=== PATIENT | female | born 2000 | race Caucasian/White ===

== ENCOUNTER 2018-06-23 17:11 | Inpatient (IN) ==
[2018-06-23] MEDS ORDERED: Morphine Inj 4 MG/ML Vial IV.PUSH ONE (17:59)
[2018-06-23] MEDS ORDERED: Sod Chloride 0.9% Inj 1,000 ML IV.SIG ONE (17:59)
--- NOTE | 2018-06-23 18:14 | ED ---
HPI General Chief Complaint: Abdominal Pain Stated Complaint: headache Time Seen by Provider: 06/23/18 17:43 Source: patient Mode of arrival: ambulatory Limitations: no limitations History of Present Illness HPI narrative: Patient is a previously healthy 17-year-old female who presents with complaint of abdominal pain that started last night and is associated with nausea but no vomiting. It is in the periumbilical/suprapubic/right lower quadrant region. She is never had this pain before. She did take aspirin this morning which did not relieve her symptoms. No diarrhea nor constipation. No fever nor chills that she is aware of. No cough, congestion, headache. MD complaint: Reports abdominal pain Onset (ago): hour(s) Pain Consistency: constant Location: Reports periumbilical, RLQ and suprapubic Severity: mild Quality: Reports stabbing Relieving factors: nothing Exacerbating factors: movement Associated symptoms: Reports nausea Treatments prior to arrival: Reports NSAIDs Related Data Home Medications Medication Instructions Recorded Confirmed albuterol sulfate [ProAir HFA] 1 puff INHALATION Q6H PRN 06/23/18 06/23/18 Previous Rx's Medication Instructions Recorded ciprofloxacin HCl [Cipro] 500 mg PO BID 10 Days #20 tab 06/23/18 metronidazole [Flagyl] 500 mg PO Q8H 10 Days #30 tab 06/23/18 Allergies Allergy/AdvReac Type Severity Reaction Status Date / Time No Known Allergies Allergy Verified 06/23/18 17:34 Review of Systems ROS: all other systems reviewed are negative [facility] Medical History Medical History Asthma (Acute) Surgical History Surgical History No history of previous surgery (Acute) Social History Social History Substance History: Active Abuse Smoking Status: Never smoker How Often Do You Have a Drink Containing Alcohol: 2 to 4 times a month Recent Travel in [facility] within the Last 8 Weeks: No Recent Out of Country Travel within the Last 8 Weeks: No Substance Abuse Detail Marijuana: Substance Use Status: Active Route Used Substance Abuse: Inhalation Immunization History Tetanus Immunization: Unsure Exam Narrative Exam Narrative: GENERAL: Well-appearing young female in no acute distress SKIN: Focused skin assessment warm/dry. No rashes. HEAD: Atraumatic. Normocephalic. EYES: Pupils equal and round. No scleral icterus. No injection or drainage. ENT: No nasal bleeding or discharge. Mucous membranes pink and moist. NECK: Trachea midline. No JVD. CARDIOVASCULAR: Regular rate and rhythm. No murmur appreciated. Intact and equal peripheral pulses. RESPIRATORY: No accessory muscle use. Clear to auscultation. Breath sounds equal bilaterally. GASTROINTESTINAL: Abdomen soft, nondistended. Tenderness present in the epigastric/periumbilical/suprapubic/right lower quadrant regions. Hepatic and splenic margins not palpable. No CVA tenderness. Negative Bradshaw sign. MUSCULOSKELETAL: No obvious deformities. No clubbing. No cyanosis. No edema. NEUROLOGICAL: Awake and alert. No obvious cranial nerve deficits. Motor grossly within normal limits. Normal speech. PSYCHIATRIC: Appropriate mood and affect; insight and judgment normal. Course Hospital Course: 2100: Patient adamantly wants to go home. Her HR is still in the 120s. She agreed to stay at least until the fluids were completed. Initial Documented Vital Signs Temperature 100.3 F H 06/23/18 17:21 Pulse Rate 115 H 06/23/18 17:21 Respiratory Rate 18 06/23/18 17:21 Blood Pressure 140/69 06/23/18 17:21 Pulse Oximetry 100 06/23/18 17:21 Last Documented Vital Signs Temperature 100.3 F H 06/23/18 17:21 Pulse Rate 122 H 06/23/18 20:57 Respiratory Rate 18 06/23/18 20:57 Blood Pressure 125/60 06/23/18 20:57 Pulse Oximetry 100 06/23/18 20:57 Medical Decision Making [facility] Narrative Medical decision making narrative: Patient is a 17-year-old female who presents with complaint of abdominal pain and general ill feeling. She appears well in general but is tachycardic with a heart rate of 115 on arrival and temperature of 100.3. Labs reveal a leukocytosis but are otherwise unremarkable. UA is concerning for infection. CT is concerning for mild colitis. She was given 2500 cc of fluid in addition to analgesics after which her heart rate remained elevated in the 120s with a stable blood pressure. Given the leukocytosis with persistent tachycardia this is concerning for sepsis. She has been given Cipro and Flagyl to cover both for the UTI and colitis. Dr. Thomas, hospitalist on- call, has accepted admission. Shortly after admission the patient did begin to have some vomiting and was given Zofran. Medical Screen Exam Complete: Yes Emergency Medical Condition: Yes Differential Diagnosis Differential Diagnosis: Differential diagnosis includes but is not limited to gastroenteritis, viral illness, dehydration, appendicitis. Medical Records Medical records reviewed: Yes I reviewed the patient's medical records. Lab Data Lab results reviewed: Yes I reviewed the patient's lab results. Result diagrams: 06/23/18 18:05 06/23/18 18:05 POC Results POC Urine Results Negative Lab Results 06/23/18 06/23/18 06/23/18 Range/Units 18:05 18:05 18:15 WBC 20.2 H (4.0-11.0) th/mm3 RBC 4.05 (4.00-5.30) mil/mm3 Hgb 12.8 (11.6-15.3) gm/dL Hct 37.1 (35.0-46.0) % MCV 91.5 (80.0-100.0) fL MCH 31.6 (27.0-34.0) pg MCHC 34.5 (32.0-36.0) % RDW 14.0 (11.6-17.2) % Plt Count 365 (150-450) th/mm3 MPV 9.0 (7.0-11.0) fL Prelim Diff (Auto) Slide review pending Neut % (Auto) 90.9 H (16.0-70.0) % Lymph % (Auto) 4.0 L (9.0-44.0) % [place] % (Auto) 4.6 (0.0-8.0) % Eos % (Auto) 0.2 (0.0-4.0) % Baso % (Auto) 0.3 (0.0-2.0) % Neut # (Auto) 18.4 H (1.8-7.7) th/mm3 Lymph # (Auto) 0.8 L (1.0-4.8) th/mm3 [place] # (Auto) 0.9 (0.0-0.9) th/mm3 Eos # (Auto) 0.0 (0.0-0.4) th/mm3 Baso # (Auto) 0.1 (0.0-0.2) th/mm3 WBC Differential . Diff Scan Auto diff confirmed Differential Comment . Platelet Estimate Normal (Normal) Platelet Morphology Normal (Normal) Sodium 137 (136-145) meq/L Potassium 4.6 (3.5-5.1) meq/L Chloride 106 (98-107) meq/L Carbon Dioxide 22.3 (21.0-32.0) meq/L Anion Gap 9 (5-15) meq/L BUN 12 (7-18) mg/dL Creatinine 0.84 (0.50-1.00) mg/dL Estimated GFR 87 L (>89) mL/min Random Glucose 95 (74-106) mg/dL Lactic Acid (0.4-2.0) mmol/L Calcium 9.0 (8.5-10.1) mg/dL Magnesium 1.9 (1.5-2.5) mg/dL Total Bilirubin 0.8 (0.2-1.0) mg/dL AST 39 H (16-38) U/L ALT 17 (9-42) U/L Alkaline Phosphatase 73 (45-117) U/L Total Protein 8.8 H (6.4-8.2) g/dL Albumin 4.3 (3.4-5.0) g/dL Lipase 103 (73-393) U/L Urine Color Yellow (Yellw/Straw) Urine Clarity Cloudy H (Clear) Urine pH 7.0 (5.0-8.5) Ur Specific [place] 1.026 (1.002-1.035) Urine Protein 100 H (Neg-Trace) mg/dL Urine Glucose (UA) Negative (Negative) mg/dL Urine Ketones Negative (Negative) mg/dL Urine Occult Blood Small H (Negative) Urine Nitrate Negative (Negative) Urine Bilirubin Negative (Negative) Urine Urobilinogen Less than 2 (Less than 2) mg/dL Ur Leukocyte Esterase Large H (Negative) Urine RBC 16 H (0-3) /hpf Urine WBC (0-5) /hpf Ur Squamous Epith Cells 13 (0-5) /hpf Urine Mucus Few H (Occasional) /lpf Micro UA Comment Culture indicated Ur Microscopic Review Not Reportable Urine Culture Comments Culture indicated 06/23/18 Range/Units 19:30 WBC (4.0-11.0) th/mm3 RBC (4.00-5.30) mil/mm3 Hgb (11.6-15.3) gm/dL Hct (35.0-46.0) % MCV (80.0-100.0) fL MCH (27.0-34.0) pg MCHC (32.0-36.0) % RDW (11.6-17.2) % Plt Count (150-450) th/mm3 MPV (7.0-11.0) fL Prelim Diff (Auto) Neut % (Auto) (16.0-70.0) % Lymph % (Auto) (9.0-44.0) % [place] % (Auto) (0.0-8.0) % Eos % (Auto) (0.0-4.0) % Baso % (Auto) (0.0-2.0) % Neut # (Auto) (1.8-7.7) th/mm3 Lymph # (Auto) (1.0-4.8) th/mm3 [place] # (Auto) (0.0-0.9) th/mm3 Eos # (Auto) (0.0-0.4) th/mm3 Baso # (Auto) (0.0-0.2) th/mm3 WBC Differential Diff Scan Differential Comment Platelet Estimate (Normal) Platelet Morphology (Normal) Sodium (136-145) meq/L Potassium (3.5-5.1) meq/L Chloride (98-107) meq/L Carbon Dioxide (21.0-32.0) meq/L Anion Gap (5-15) meq/L BUN (7-18) mg/dL Creatinine (0.50-1.00) mg/dL Estimated GFR (>89) mL/min Random Glucose (74-106) mg/dL Lactic Acid 1.0 (0.4-2.0) mmol/L Calcium (8.5-10.1) mg/dL Magnesium (1.5-2.5) mg/dL Total Bilirubin (0.2-1.0) mg/dL AST (16-38) U/L ALT (9-42) U/L Alkaline Phosphatase (45-117) U/L Total Protein (6.4-8.2) g/dL Albumin (3.4-5.0) g/dL Lipase (73-393) U/L Urine Color (Yellw/Straw) Urine Clarity (Clear) Urine pH (5.0-8.5) Ur Specific [place] (1.002-1.035) Urine Protein (Neg-Trace) mg/dL Urine Glucose (UA) (Negative) mg/dL Urine Ketones (Negative) mg/dL Urine Occult Blood (Negative) Urine Nitrate (Negative) Urine Bilirubin (Negative) Urine Urobilinogen (Less than 2) mg/dL Ur Leukocyte Esterase (Negative) Urine RBC (0-3) /hpf Urine WBC (0-5) /hpf Ur Squamous Epith Cells (0-5) /hpf Urine Mucus (Occasional) /lpf Micro UA Comment Ur Microscopic Review Urine Culture Comments Imaging Data Attestation: I personally reviewed and interpreted this imaging study as follows : Radiologist's impression: Abdomen/Pelvis CT 06/23/18 17:59 CONCLUSION: 1. Questionable mild focal thickening involving the wall of the rectosigmoid colon raising mild acute colitis. Clinical correlation is recommended. 2. Minimal free fluid is noted inferior to the cecum. 3. no evidence of acute appendicitis. 4. Tiny collection of free fluid within the cul-de-sac. Discharge Plan Discharge Disposition Patient Disposition: ED Admit(ED Internal Use Only) Discharge Condition Condition: Stable Discharge Order Discharge Orders: ED Use Only Admit Order (Routine); Ordered 06/23/18 Ordered By: Allyson Granger Discharge Details Diagnosis: Acute UTI, Colitis, Sepsis Physicians Team ED Provider: Allyson Granger Primary Care Provider: UNKNOWN, Attending Provider: Tasha Thomas Discharge Interventions Interventions: Vital Signs Last Done: 06/23/18 20:57 Status ED Status: Admitted Patient
[2018-06-23 18:34] LABS: Bilirubin,Urine Negative (Negative); Clarity,Urine Cloudy (Clear); Color,Urine Yellow (Yellw/Straw); Glucose,Urine (UA) Negative (Negative); Leukocyte Esterase,Urine Large (Negative); Mucus,Urine Few /lpf (Occasional); Nitrite,Urine Negative (Negative); Specific Gravity,Urine 1.026 (1.002-1.035); Squamous Epithelial Cell,Urine 13 /hpf (0-5)
[2018-06-23 18:43] LABS: Baso # (Auto) 0.1 th/mm3 (0.0-0.2); Baso % (Auto) 0.3 % (0.0-2.0); Eos % (Auto) 0.2 % (0.0-4.0); Hematocrit 37.1 % (35.0-46.0); Hemoglobin 12.8 gm/dL (11.6-15.3); Lymph # (Auto) 0.8 th/mm3 (1.0-4.8); Mean Corpuscular HGB Conc 34.5 % (32.0-36.0); Mean Corpuscular Hemoglobin 31.6 pg (27.0-34.0); Mean Corpuscular Volume 91.5 fL (80.0-100.0); Mono # (Auto) 0.9 th/mm3 (0.0-0.9); Mono % (Auto) 4.6 % (0.0-8.0); Neut # (Auto) 18.4 th/mm3 (1.8-7.7); Neut % (Auto) 90.9 % (16.0-70.0); Platelet Count 365 th/mm3 (150-450); Red Blood Count 4.05 mil/mm3 (4.00-5.30); White Blood Count 20.2 th/mm3 (4.0-11.0)
[2018-06-23 18:44] LABS: Alanine Aminotransferase 17 U/L (9-42)
[2018-06-23 18:45] LABS: Alkaline Phosphatase 73 U/L (45-117); Total Protein 8.8 g/dL (6.4-8.2)
[2018-06-23] MEDS ORDERED: Sod Chloride 0.9% Inj 1,000 ML IV.SIG SCH (18:45)
[2018-06-23 18:46] LABS: Albumin 4.3 g/dL (3.4-5.0); Anion Gap 9 meq/L (5-15); Aspartate Aminotransferase 39 U/L (16-38); Blood Urea Nitrogen 12 mg/dL (7-18); Carbon Dioxide 22.3 meq/L (21.0-32.0); Chloride 106 meq/L (98-107); Glomerular Filtration Rate 87 mL/min (>89); Glucose,Random 95 mg/dL (74-106); Lipase 103 U/L (73-393); Magnesium 1.9 mg/dL (1.5-2.5); Potassium 4.6 meq/L (3.5-5.1); Sodium 137 meq/L (136-145)
[2018-06-23] MEDS ORDERED: Sodium Chlor 0.9% Inj 500 ML IV.SIG SCH (19:00)
[2018-06-23 19:28] LABS: Platelet Estimate Normal (Normal); Platelet Morphology Normal (Normal)
--- NOTE | 2018-06-23 20:50 | CT ---
EXAM DATE: 06/23/2018 8:41 PM EST AGE/SEX: 17 years / Female INDICATIONS: Abdominal pain and nausea since last night. CLINICAL DATA: This is the patient's initial encounter. Patient reports that signs and symptoms have been present for 1 day and indicates a pain score of 7/10. MEDICAL/SURGICAL HISTORY: Asthma. None. ORAL CONTRAST: No oral contrast ingested. RADIATION DOSE: 6.84 CTDI (mGy) COMPARISON: No prior exams available for comparison. TECHNIQUE: Multiple contiguous axial images were obtained through the abdomen and pelvis following b olus infusion of 96 ml Omnipaque 350 (iohexol) nonionic water-soluble contrast as a single exam dos e. No oral contrast ingested. Using automated exposure control and adjustment of the mA and/or kV ac cording to patient size, radiation dose was kept as low as reasonably achievable to obtain optimal di agnostic quality images. DICOM format image data is available electronically for review and comparis on. FINDINGS: Lower Lungs: The visualized lower lungs are clear. Liver: The liver has a homogeneous density without space-occupying lesion. There is no dilation of th e biliary tree. Spleen: Homogeneous density without enlargement. Pancreas: Unremarkable without mass or calcification. Kidneys: Normal in size and shape. No evidence of mass or hydronephrosis. Adrenal Glands: Unremarkable. Aorta: The aorta and proximal iliac vessels are grossly unremarkable without aneurysmal dilation. Bowel/Mesentery: There is questionable mild focal thickening involving the wall of the rectosigmoid colon raising mild acute colitis. Clinical correlation is recommended. Minimal free fluid is noted in ferior to the cecum. There is no evidence of acute appendicitis. Abdominal Wall: Intact. Retroperitoneum: No evidence of adenopathy in the retrocrural, para-aortic, or deep pelvic regions. Bladder: Contours are smooth. Reproductive Organs: No abnormal masses or calcifications seen. Tiny collection of free fluid is not ed within the cul-de-sac. Inguinal: The inguinal region is unremarkable without evidence of adenopathy. Bony Structures: Unremarkable. CONCLUSION: 1. Questionable mild focal thickening involving the wall of the rectosigmoid colon raising mild acut e colitis. Clinical correlation is recommended. 2. Minimal free fluid is noted inferior to the cecum. 3. no evidence of acute appendicitis. 4. Tiny collection of free fluid within the cul-de-sac. Electronically signed by: Lucio Castillo MD Board Certified Radiologist 06/23/2018 8:48 PM EST
[2018-06-23] MEDS ORDERED: Ketorolac Inj 30 MG/ML (IVP) Vial IV.PUSH ONE (21:02)
[2018-06-23] MEDS ORDERED: Ciprofloxacin 400 MG/200 ML 400 MG/200 ML PIGGYBACK IV.SIG ONE (21:11)
[2018-06-23] MEDS ORDERED: Acetaminophen 325 MG Tablet PO ONE (22:47)
[2018-06-23] MEDS: Sod Chloride 0.9% Inj 1,000 ML IV.CONT SCH (23:13)
[2018-06-24] MEDS ORDERED: RESP: Albuterol Concentrated 2.5 MG/0.5 ML Neb NEB PRN (00:10)
--- NOTE | 2018-06-24 00:13 | P.HP ---
History of Present Illness Service: [facility] Primary Care Physician: UNKNOWN History of Present Illness: 17-year-old female with a past medical history significant for asthma presents to the emergency department for evaluation of abdominal pain that started last night. The patient has had accompanying nausea/vomiting, no hematemesis. She denies any diarrhea. Endorses subjective fever/chills and a headache. No chest pain or shortness of breath. Inpatient Certification: I certify that the inpatient services were ordered in accordance with Medicare regulations governing the order. This includes certification that hospital inpatient services are reasonable and necessary and in the case of services not specified as inpatient-only under 42 CFR 419.22(n), that they are appropriately provided as inpatient services in accordance to with the 2-midnight benchmark under 43 CFR 412.3(e) Estimated Total Length of Stay (Days): 2 Plans for Post Hospital Care: Home Review of Systems All other systems reviewed negative except as stated in HPI [facility] - History History Provided By: Patient - Medical History Medical History: Medical History (Last Reviewed 06/24/18 @ 00:08 by Tasha Thomas MD) Asthma - Surgical History Surgical History: Surgical History (Last Reviewed 06/24/18 @ 00:08 by Tasha Thomas MD) No history of previous surgery - Family History Family History: Family History (Last Updated 06/24/18 @ 00:08 by Tasha Thomas MD) Other Diabetes mellitus - Tobacco History Tobacco Use In Past 30 Days: No Smoking Status: Never smoker - Alcohol History How Often Do You Have a Drink Containing Alcohol: 2 to 4 times a month - Substance Use History Substance History: Active Abuse - Substance Use Type Marijuana Status: Active Route Used: Inhalation - Travel History Recent Travel in the [place] Within the Last 8 Weeks: No Recent Travel Out of the Country Within the Last 8 Weeks: No - Immunization History Tetanus Immunization: Unsure Medications and Allergies Active Medications: Active Medications Acetaminophen (Tylenol) 650 mg PO Q4H PRN PRN Reason: Temp > 100.4 Ciprofloxacin/Dextrose (Cipro 400 Mg/200 Ml Inj) 400 mg in 200 mls @ 200 mls/ hr IV.SIG Q12H [facility] Metronidazole/Sodium Chloride (Flagyl 500 Mg Inj) 100 mls @ 100 mls/hr IV.SIG Q8H [facility] Sodium Chloride (Ns Inj) 1,000 mls @ 100 mls/hr IV.CONT .Q10H [facility] Last Admin: 06/23/18 23:13 Dose: 100 mls/hr Ondansetron HCl (Zofran Inj) 4 mg IV.PUSH Q6H PRN PRN Reason: NAUSEA OR VOMITING Sodium Chloride (Ns Flush) 2 ml IV.FLUSH PRN PRN PRN Reason: FLUSH AFTER USING IV ACCESS Sodium Chloride (Ns Flush) 2 ml IV.FLUSH PRN PRN PRN Reason: FLUSH AFTER USING IV ACCESS Sodium Chloride (Ns Flush) 2 ml IV.FLUSH BID [facility] Allergies Allergy/AdvReac Type Severity Reaction Status Date / Time No Known Allergies Allergy Verified 06/23/18 17:34 Home Medications Medication Instructions Recorded Confirmed Type albuterol sulfate [ProAir HFA] 1 puff INHALATION Q6H PRN 06/23/18 06/23/18 History Exam Vital signs: Vital Signs 06/23/18 17:21 06/23/18 20:57 Temperature 100.3 F H Pulse Rate 115 H 122 H Respiratory Rate 18 18 Blood Pressure 140/69 125/60 Pulse Oximetry 100 100 Intake & Output 06/23/18 06/23/18 06/24/18 06:59 18:59 06:59 Intake Total 2800 / 2800 Balance 2800 / 2800 Weight 73.482 kg Intake: IV 2800 / 2800 Cipro 400 MG/200 ML Inj 400 mg 200 / 200 In 200 ml @ 200 mls/hr IV.SIG ONCE ONE Rx#:[id number] NS Inj 1,000 ML @ Wide Open IV. 1999 / 1999 SIG BOLUS ONE Rx#:[id number] NS Inj 500 ML @ 1000 mls/hr IV. 500 / 500 SIG BOLUS [facility] Rx#:[id number] Flagyl 500 MG Inj 100 ML @ 100 100 / 100 mls/hr IV.SIG ONCE ONE Rx#: [id number] Narrative: Gen.: No acute distress Head: Normocephalic. Atraumatic. EENT: Pupils equal round and reactive to light. Nose without drainage. Airway intact. Throat without injection. Cardiovascular: Regular rate and rhythm. No murmurs, rubs or gallops. Respiratory: Lungs clear to auscultation bilaterally. No wheezes or rhonchi. Abdomen: Soft, diffusely tender to palpation worse in the periumbilical region, nondistended. No peritoneal signs. Musculoskeletal: No gross deformities. No edema. Skin: No obvious rashes or erythema. Neuro: Sensory and motor grossly intact. Cranial nerves II through XII grossly intact. Results - Labs CBC & Chem 7: 06/23/18 18:05 06/23/18 18:05 Labs: Laboratory Results - last 24 hr 06/23/18 06/23/18 06/23/18 18:05 18:05 18:15 WBC 20.2 H RBC 4.05 Hgb 12.8 Hct 37.1 MCV 91.5 MCH 31.6 MCHC 34.5 RDW 14.0 Plt Count 365 MPV 9.0 Prelim Diff (Auto) Slide review pending Neut % (Auto) 90.9 H Lymph % (Auto) 4.0 L [place] % (Auto) 4.6 Eos % (Auto) 0.2 Baso % (Auto) 0.3 Neut # (Auto) 18.4 H Lymph # (Auto) 0.8 L [place] # (Auto) 0.9 Eos # (Auto) 0.0 Baso # (Auto) 0.1 WBC Differential . Diff Scan Auto diff confirmed Differential Comment . Platelet Estimate Normal Platelet Morphology Normal Sodium 137 Potassium 4.6 Chloride 106 Carbon Dioxide 22.3 Anion Gap 9 BUN 12 Creatinine 0.84 Estimated GFR 87 L Random Glucose 95 Lactic Acid Calcium 9.0 Magnesium 1.9 Total Bilirubin 0.8 AST 39 H ALT 17 Alkaline Phosphatase 73 Total Protein 8.8 H Albumin 4.3 Lipase 103 Urine Color Yellow Urine Clarity Cloudy H Urine pH 7.0 Ur Specific [place] 1.026 Urine Protein 100 H Urine Glucose (UA) Negative Urine Ketones Negative Urine Occult Blood Small H Urine Nitrate Negative Urine Bilirubin Negative Urine Urobilinogen Less than 2 Ur Leukocyte Esterase Large H Urine RBC 16 H Urine WBC Ur Squamous Epith Cells 13 Urine Mucus Few H Micro UA Comment Culture indicated Ur Microscopic Review Not Reportable Urine Culture Comments Culture indicated 06/23/18 19:30 WBC RBC Hgb Hct MCV MCH MCHC RDW Plt Count MPV Prelim Diff (Auto) Neut % (Auto) Lymph % (Auto) [place] % (Auto) Eos % (Auto) Baso % (Auto) Neut # (Auto) Lymph # (Auto) [place] # (Auto) Eos # (Auto) Baso # (Auto) WBC Differential Diff Scan Differential Comment Platelet Estimate Platelet Morphology Sodium Potassium Chloride Carbon Dioxide Anion Gap BUN Creatinine Estimated GFR Random Glucose Lactic Acid 1.0 Calcium Magnesium Total Bilirubin AST ALT Alkaline Phosphatase Total Protein Albumin Lipase Urine Color Urine Clarity Urine pH Ur Specific [place] Urine Protein Urine Glucose (UA) Urine Ketones Urine Occult Blood Urine Nitrate Urine Bilirubin Urine Urobilinogen Ur Leukocyte Esterase Urine RBC Urine WBC Ur Squamous Epith Cells Urine Mucus Micro UA Comment Ur Microscopic Review Urine Culture Comments - Imaging Impressions Abdomen/Pelvis CT 06/23/18 17:59 CONCLUSION: 1. Questionable mild focal thickening involving the wall of the rectosigmoid colon raising mild acute colitis. Clinical correlation is recommended. 2. Minimal free fluid is noted inferior to the cecum. 3. no evidence of acute appendicitis. 4. Tiny collection of free fluid within the cul-de-sac. Caprini VTE Risk Assessment Caprini VTE Risk Assessment: No/Low Risk (score <= 1) Caprini Risk Assessment Model: Point Value = 1 Point Value = 2 Point Value = 3 Point Value = 5 Age 41-60 Minor surgery BMI > 25 kg/m2 Swollen legs Varicose veins or History of unexplained or recurrent spontaneous Oral contraceptives or hormone replacement Sepsis (< 1 month) Serious lung disease, including pneumonia (< 1 month) Abnormal pulmonary function Acute myocardial infarction Congestive heart failure (< 1 month) History of inflammatory bowel disease Medical patient at bed rest Age 61-74 Arthroscopic surgery Major open surgery (> 45 min) Laparoscopic surgery (> 45 min) Malignancy Confined to bed (> 72 hours) Immobilizing plaster cast Central venous access Age >= 75 History of VTE Family history of VTE Factor V Leiden Prothrombin [id number] Lupus anticoagulant Anticardiolipin antibodies Elevated serum homocysteine Heparin-induced thrombocytopenia Other congenital or acquired thrombophilia Stroke (< 1 month) Elective arthroplasty Hip, pelvis, or leg fracture Acute spinal cord injury (< 1 month) Prophylaxis Regimen: Total Risk Factor Score Risk Level Prophylaxis Regimen 0-1 Low Early ambulation 2 Moderate Order ONE of the following: *Sequential Compression Device (SCD) *Heparin 5000 units SQ BID 3-4 Higher Order ONE of the following medications: *Heparin 5000 units SQ TID *Enoxaparin/Lovenox 40 mg SQ daily (WT < 150 kg, CrCl > 30 mL/min) *Enoxaparin/Lovenox 30 mg SQ daily (WT < 150 kg, CrCl > 10-29 mL/min) *Enoxaparin/Lovenox 30 mg SQ BID (WT < 150 kg, CrCl > 30 mL/min) AND/OR *Sequential Compression Device (SCD) 5 or more Highest Order ONE of the following medications: *Heparin 5000 units SQ TID (Preferred with Epidurals) *Enoxaparin/Lovenox 40 mg SQ daily (WT < 150 kg, CrCl > 30 mL/min) *Enoxaparin/Lovenox 30 mg SQ daily (WT < 150 kg, CrCl > 10-29 mL/min) *Enoxaparin/Lovenox 30 mg SQ BID (WT < 150 kg, CrCl > 30 mL/min) AND *Sequential Compression Device (SCD) Assessment and Plan - Plan Assessment/plan: 1. Colitis/sepsis Patient with leukocytosis, fever, tachycardia CT of the abdomen/pelvis significant for questionable mild focal thickening involving the wall of the rectosigmoid colon concerning for mild acute colitis Cipro/Flagyl IV fluids 2. Asthma Albuterol as needed Patient reports last use of her rescue inhaler was FEN: Clear liquid diet Electrolytes: Monitor and replete as needed NS at 100 cc/hour
[2018-06-24 06:11] LABS: Baso % (Auto) 0.3 % (0.0-2.0); Eos % (Auto) 0.1 % (0.0-4.0); Hematocrit 30.9 % (35.0-46.0); Hemoglobin 10.5 gm/dL (11.6-15.3); Lymph # (Auto) 0.9 th/mm3 (1.0-4.8); Mean Corpuscular HGB Conc 33.9 % (32.0-36.0); Mean Corpuscular Hemoglobin 30.7 pg (27.0-34.0); Mean Corpuscular Volume 90.5 fL (80.0-100.0); Mean Platelet Volume 8.3 fL (7.0-11.0); Mono # (Auto) 0.8 th/mm3 (0.0-0.9); Mono % (Auto) 5.1 % (0.0-8.0); Neut # (Auto) 13.5 th/mm3 (1.8-7.7); Neut % (Auto) 88.5 % (16.0-70.0); Platelet Count 259 th/mm3 (150-450); Red Blood Count 3.42 mil/mm3 (4.00-5.30); Red Cell Distribution Width 13.8 % (11.6-17.2); White Blood Count 15.3 th/mm3 (4.0-11.0)
[2018-06-24 06:32] LABS: Anion Gap 9 meq/L (5-15); Blood Urea Nitrogen 6 mg/dL (7-18); Calcium 7.9 mg/dL (8.5-10.1); Carbon Dioxide 22.3 meq/L (21.0-32.0); Chloride 110 meq/L (98-107); Glomerular Filtration Rate Greater Than 89 mL/min (>89); Glucose,Random 88 mg/dL (74-106); Potassium 3.5 meq/L (3.5-5.1); Sodium 141 meq/L (136-145)
[2018-06-24] MEDS: Sod Chloride 0.9% Inj 1,000 ML IV.CONT SCH ×2 (08:30→19:55)
[2018-06-24] MEDS: Acetaminophen 325 MG Tablet PO PRN ×2 (09:50→19:51)
[2018-06-24] MEDS: Ciprofloxacin 400 MG/200 ML 400 MG/200 ML PIGGYBACK IV.SIG SCH ×2 (10:01→22:53)
--- NOTE | 2018-06-24 17:08 | P.PNIM ---
Subjective Interval history: 17-year-old female admitted with abdominal pain nausea vomiting found to have mild acute colitis with WBC 20,000 Patient seen and examined, still having some moderate tolerating liquids, denies shortness of breath fever, diarrhea. Physical Exam Vital signs: Last Vital Signs Temp 99.0 F 06/24/18 16:00 Pulse 99 H 06/24/18 16:14 Resp 26 H 06/24/18 16:14 BP 119/64 06/24/18 16:00 Pulse Ox 99 06/24/18 16:14 Intake & Output 06/22/18 06/23/18 06/24/18 06/25/18 06:59 06:59 06:59 06:59 Intake Total 2800 / 2800 1732 / 1732 Output Total 1000 / 1000 Balance 2800 / 2800 732 / 732 Weight 73.482 kg Well-developed well-nourished 17-year-old female Awake alert oriented no acute distress Heart S1-S2 regular Lungs clear bilateral Abdomen soft nondistended moderate tenderness to palpation left lower quadrant, no significant guarding rebound or rigidity Extremities no clubbing cyanosis no edema no calf tenderness Results Labs CBC & Chem 7: 06/24/18 05:49 06/24/18 05:49 Labs: Microbiology 06/23/18 18:15 Clean Catch Urine Urine Culture - Preliminary Immature growth - reincubate 06/23/18 21:40 Blood - Peripheral Aerobic Blood Culture - Preliminary No growth in 1 day 06/23/18 21:40 Blood - Peripheral Anaerobic Blood Culture - Preliminary No growth in 1 day 06/23/18 21:10 Blood - Peripheral Aerobic Blood Culture - Preliminary No growth in 1 day 06/23/18 21:10 Blood - Peripheral Anaerobic Blood Culture - Preliminary No growth in 1 day Imaging Imaging: Impressions Abdomen/Pelvis CT 06/23/18 17:59 CONCLUSION: 1. Questionable mild focal thickening involving the wall of the rectosigmoid colon raising mild acute colitis. Clinical correlation is recommended. 2. Minimal free fluid is noted inferior to the cecum. 3. no evidence of acute appendicitis. 4. Tiny collection of free fluid within the cul-de-sac. Assessment and Plan Plan SEPSIS due to colitiscontinue antibiotics, fluids, improved stable ACUTE COLITIS of rectosigmoidcontinue clear liquids, WBC improving, advance diet tomorrow, possible discharge home if tolerating diet tomorrow on oral antibiotics if clinically stable. May need outpatient follow-up with GI to evaluate for inflammatory bowel disease in a patient this age with finding of colitis. ASTHMA, history clinically stable, albuteral prn dvt prophylaxis - early ambulation oob dispo - home when delfin diet and afebrile. 1-2d Progress Note: Quality VTE Deep Vein Thrombosis/Pulmonary Embolism Present on Admission: No
[2018-06-24 20:08] VITALS: O2SAT 100
[2018-06-24] MEDS ORDERED: Ketorolac Inj 30 MG/ML (IVP) Vial IV.PUSH ONE (20:44)
[2018-06-25] MEDS: Sod Chloride 0.9% Inj 1,000 ML IV.CONT SCH (07:49)
[2018-06-25] MEDS: Acetaminophen 325 MG Tablet PO PRN (07:54)
[2018-06-25 08:17] VITALS: BP 118/63; RESP 20
--- NOTE | 2018-06-25 09:05 | P.PNIM ---
Subjective Interval history: Patient seen and examined this morning at the bedside case discussed with nursing. Patient to begin advanced diet this morning patient seen at the bedside Patient says pain is 5/10 currently in the middle of stomach area no fever but felt warm/cold off and on occasionally no emesis or diarrhea required pain medication overnight has yougurt at the bedside and will attempt to eat am labwork still pending. patient wants to go but she is still with significant pain level and hasnt had a normal diet. likely will monitor her as she could rebound back to hospital if she cannot eat regular and still has pain. Physical Exam Vital signs: Last Vital Signs Temp 98.5 F 06/25/18 08:00 Pulse 92 H 06/25/18 08:00 Resp 20 06/25/18 08:00 BP 118/63 06/25/18 08:00 Pulse Ox 100 06/25/18 08:00 Intake & Output 06/23/18 06/24/18 06/25/18 06/26/18 06:59 06:59 06:59 06:59 Intake Total 2800 / 2800 3792 / 3792 875 / 875 Output Total 2310 / 2310 Balance 2800 / 2800 1482 / 1482 875 / 875 Weight 73.482 kg Narrative: Gen.: No acute distress Head: Normocephalic. Atraumatic. EENT: Pupils equal round and reactive to light. Cardiovascular: Regular rate and rhythm. No murmurs, rubs or gallops. Respiratory: Lungs clear to auscultation bilaterally. No wheezes or rhonchi. Abdomen: Soft, diffusely tender to palpation worse in the periumbilical region, nondistended. No peritoneal signs. Musculoskeletal: No gross deformities. No edema. Skin: No obvious rashes or erythema. Neuro: Sensory and motor grossly intact. Cranial nerves II through XII grossly intact. Results Labs CBC & Chem 7: 06/24/18 05:49 06/24/18 05:49 Labs: Microbiology 06/23/18 18:15 Clean Catch Urine Urine Culture - Preliminary Immature growth - reincubate 06/23/18 21:40 Blood - Peripheral Aerobic Blood Culture - Preliminary No growth in 1 day 06/23/18 21:40 Blood - Peripheral Anaerobic Blood Culture - Preliminary No growth in 1 day 06/23/18 21:10 Blood - Peripheral Aerobic Blood Culture - Preliminary No growth in 1 day 06/23/18 21:10 Blood - Peripheral Anaerobic Blood Culture - Preliminary No growth in 1 day Assessment and Plan Plan Patient is a 17 year old female with history of asthma presenting with acute abdominal pain found to have evidence of colitis placed on abx Gastroenterology: colitis - continue IVF hydration for now and may dc once fully tolerating PO diet - cipro/flagyl for 10 days total - outpatient PMD w/ GI referral for consideration of IBD once acute inflammatory issue completed - continue to advance diet - once pain better controlled will discharge if tolerating regular meals - BC'x negative thus far. pulmonary: asthma - stable. continue nebulizers prn code:fc dispo: med./surg anticipated d/c 24hrs if improved. Progress Note: Quality VTE Deep Vein Thrombosis/Pulmonary Embolism Present on Admission: No
[2018-06-25] MEDS: Ciprofloxacin 400 MG/200 ML 400 MG/200 ML PIGGYBACK IV.SIG SCH (09:42)
[2018-06-25 09:57] LABS: Baso % (Auto) 0.5 % (0.0-2.0); Eos # (Auto) 0.1 th/mm3 (0.0-0.4); Eos % (Auto) 1.5 % (0.0-4.0); Hematocrit 31.9 % (35.0-46.0); Lymph # (Auto) 0.7 th/mm3 (1.0-4.8); Mean Corpuscular HGB Conc 34.5 % (32.0-36.0); Mean Corpuscular Hemoglobin 31.1 pg (27.0-34.0); Mean Corpuscular Volume 89.9 fL (80.0-100.0); Mono # (Auto) 0.5 th/mm3 (0.0-0.9); Mono % (Auto) 6.8 % (0.0-8.0); Neut # (Auto) 5.9 th/mm3 (1.8-7.7); Neut % (Auto) 81.2 % (16.0-70.0); Platelet Count 283 th/mm3 (150-450); Red Blood Count 3.55 mil/mm3 (4.00-5.30); Red Cell Distribution Width 13.6 % (11.6-17.2); White Blood Count 7.2 th/mm3 (4.0-11.0)
[2018-06-25 14:48] VITALS: PULSE 99; TEMP 99
--- NOTE | 2018-06-25 16:02 | P.DS ---
DS: Providers Date of admission: 06/23/18 22:15 Primary care physician: UNKNOWN Patient is a 17 year old female who presented to ED for abdominal pain and found to have evidence of focal colitis for which she was started on cipro/ flagyl. initial wbc > 20k which normalized on antibiotics. patient clinically improved and stable for discharge with provisions to follow up pmd outpatient for referral for clinical data manager for possible IBD evaluation after acute infection resolves. patient to be discharged on additional 5 days of combination antibiotics. Brief History from admission: 17-year-old female with a past medical history significant for asthma presents to the emergency department for evaluation of abdominal pain that started last night. The patient has had accompanying nausea/vomiting, no hematemesis. She denies any diarrhea. Endorses subjective fever/chills and a headache. No chest pain or shortness of breath. DS: Summary Patient is a 17 year old female who presented to ED for abdominal pain and found to have evidence of focal colitis for which she was started on cipro/ flagyl. initial wbc > 20k which normalized on antibiotics. patient clinically improved and stable for discharge with provisions to follow up pmd outpatient for referral for clinical data manager for possible IBD evaluation after acute infection resolves. patient to be discharged on additional 5 days of combination antibiotics. Time Spent with Patient Total time spent providing and/or coordinating discharge services: Quality: VTE Deep Vein Thrombosis/Pulmonary Embolism Present on Admission: No Results Labs on day of discharge: Labs from last 24 hours 06/25/18 06/25/18 11:11 09:29 WBC 7.2 RBC 3.55 L Hgb 11.0 L Hct 31.9 L MCV 89.9 MCH 31.1 MCHC 34.5 RDW 13.6 Plt Count 283 MPV 8.0 Neut % (Auto) 81.2 H Lymph % (Auto) 10.0 [place] % (Auto) 6.8 Eos % (Auto) 1.5 Baso % (Auto) 0.5 Neut # (Auto) 5.9 Lymph # (Auto) 0.7 L [place] # (Auto) 0.5 Eos # (Auto) 0.1 Baso # (Auto) 0.0 WBC Differential . Differential Comment Auto diff final POC Glucose 105 Preliminary micro results at discharge 06/23/18 21:40 Aerobic Blood Culture - Preliminary Blood - Peripheral No growth in 2 days Anaerobic Blood Culture - Preliminary No growth in 2 days 06/23/18 21:10 Aerobic Blood Culture - Preliminary Blood - Peripheral No growth in 2 days Anaerobic Blood Culture - Preliminary No growth in 2 days Impressions ITS Impressions Abdomen/Pelvis CT 06/23/18 17:59 CONCLUSION: 1. Questionable mild focal thickening involving the wall of the rectosigmoid colon raising mild acute colitis. Clinical correlation is recommended. 2. Minimal free fluid is noted inferior to the cecum. 3. no evidence of acute appendicitis. 4. Tiny collection of free fluid within the cul-de-sac. Discharge Plan Discharge Disposition Patient Disposition: Discharge Home Discharge Condition Condition: Stable Discharge Order Discharge Orders: Discharge Order (Routine); Ordered 06/25/18 Ordered By: Lucio Thompson Discharge Details Anticipated Discharge Date: 06/25/18 Physicians Team Primary Care Provider: UNKNOWN, Attending Provider: Lucio Thompson Rxs /Orders / Referrals /Forms Prescriptions: New ciprofloxacin HCl 500 mg tablet 500 mg PO Q12H 5 Days Qty: 10 RF: 0 metronidazole [Flagyl] 500 mg tablet 500 mg PO Q8H 5 Days Qty: 15 RF: 0 Continue albuterol sulfate [ProAir HFA] 90 mcg/actuation Hfa Aerosol Inhaler 1 puff INHALATION Q6H PRN (Reason: Dyspnea) RF: 0 Referrals: UNKNOWN, [Primary Care Provider] - See Instructions (please follow up with your primary medical doctor outpatient in 5-7 days ) Discharge Instructions Patient Printed Instructions: Colitis (ED) Status ED Status: Left Department
== END 2018-06-25 16:37 | disposition home or self-care (01) ==
LOC: NEPD 17:11 → NEDA 22:15 → NEPFCDU 06-24 00:16 → HPIC 06-24 08:13
PROVIDERS: ADMIT Internal Medicine; ATTEND Internal Medicine